=== PATIENT | female | born 1985 | race African-American/Black ===

== ENCOUNTER 2016-04-24 11:28 | Emergency (ER) | payer OTHER ==
[~2016-04-24] VITALS: Ht 160 cm; Wt 77.1 kg
[~2016-04-24 11:28] MED LIST: AMOXICILLIN500 MG PO; FLINTSTONES1 TABLET PO; Feosol PO; MOTRIN600 MG PO; NAPROSYN500 MG PO; NOHOMEMEDS; TRAMADOL HCL50 MG PO
[2016-04-24] MEDS ORDERED: FLEXERIL5 MG PO (13:59)
[2016-04-24] MEDS ORDERED: NAPROSYN500 MG PO (13:59)
[2016-04-24 15:02] VITALS: BP 116/81
== END 2016-04-24 15:05 | disposition home or self-care (01) ==
LOC: RME 11:28 → EME 11:28 → RME 15:05
DX: M62.838 Other muscle spasm (principal); M25.512 Pain in left shoulder
CPT/HCPCS: 99281; 99283